=== PATIENT | female | born 1985 | race American Indian/Alaskan Native ===

== ENCOUNTER 2017-05-02 22:50 | Emergency (ER) | payer BC ==
[2017-05-02 22:51] VITALS: BMI 37.0
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
[2017-05-02 23:25] VITALS: BP 145/86; PULSE 73; RESP 16; TEMP 97.9; O2SAT 99
[2017-05-02 23:56] LABS: BASO # 0.01 K/mm3 (0.0-2.0); BASO % 0.3 % (0.0-3.0); EOS # 0.1 (0.0-0.7); EOS % 2.2 % (1.5-5.0); GRAN # 1.33 (1.4-6.5); GRAN % 40.9 % (50.0-68.0); HEMATOCRIT 34.2 % (36.0-48.0); LYMPH # 1.6 (1.2-3.4); LYMPH % 48.9 % (22.0-35.0); MEAN CELL VOLUME 82.8 fl (80.0-105.0); MEAN CORPUSCULAR HEMOGLOBIN 26.9 pg (25.0-35.0); MEAN CORPUSCULAR HGB CONC 32.5 g/dl (31.0-37.0); MEAN PLATELET VOLUME 11.7 fl (7.0-11.0); MONO # 0.3 (0.1-0.6); MONO % 7.7 % (1.0-6.0); RED CELL DISTRIBUTION WIDTH 16.2 % (11.5-14.5); WHITE BLOOD COUNT 3.3 10^3/ul (4.5-11.0)
[2017-05-02 23:58] LABS: ALB/GLOB RATIO 1.2 (1.1-1.8); ALKALINE PHOSPHATASE 57 U/L (38-126); ALT/SGPT 31 U/L (7-56); AST/SGOT 28 U/L (14-36); BILIRUBIN,TOTAL 0.4 mg/dL (0.2-1.3); BLOOD UREA NITROGEN 12 mg/dL (7-21); CALCIUM 8.6 mg/dL (8.4-10.5); CARBON DIOXIDE 24 mmol/L (21-33); GFR AFRICAN-AMERICAN > 60; GLUCOSE,RANDOM 101 mg/dL (70-110); POTASSIUM 3.8 mmol/L (3.6-5.0); SODIUM 140 mmol/L (132-148); TOTAL PROTEIN 7.7 g/dL (5.8-8.3)
[2017-05-03 00:01] LABS: CHLORIDE 106 mmol/L (98-107)
== END 2017-05-03 00:27 | disposition home or self-care (01) ==
LOC: ED 22:50
DX: Z00.8 Encounter for other general examination (principal)
CPT/HCPCS: 80053; 85025; 90791; 99283; G0480